=== PATIENT | male | born 1945 | race Caucasian/White ===

== ENCOUNTER 2021-04-27 21:19 | Emergency (ER) | payer OTHER ==
[~2021-04-27] VITALS: Ht 177.8 cm; Wt 95.0 kg
[~2021-04-27 21:19] MED LIST: AMITRIPTYLIN100 MG PO; AMOXICILLIN500 M1 OR; MOTRIN800 MG OR; PREVACID30 M2 PO; PREVACID30 M3 PO; TERAZOSIN10 MG PO; TRAZODONE100 MG PO; VICODIN1 TAB PO
[2021-04-27 22:02] VITALS: BP 113/55
[2021-04-27 22:30] VITALS: BP 105/52
[2021-04-27 22:43] LABS: HEMATOCRIT 41.6 % (39.0-50.0); IMMATURE GRANULOCYTES 0.1 % (0.0-5.0); MEAN CELL VOLUME 95.2 fL CALC (80.0-100.0); MEAN CORPUSCULAR HGB 31.1 pG CALC (26.0-32.0); MEAN CORPUSCULAR HGB CONC 32.7 g/dL CAL (32.0-36.0); NEUT# 7.85 thou/uL (1.82-7.42); RED BLOOD COUNT 4.37 mill/uL (4.70-6.10)
[2021-04-27 22:44] LABS: HEMOGLOBIN 13.6 g/dl (14.0-18.0)
[2021-04-27 23:00] VITALS: BP 118/55
[2021-04-27 23:04] LABS: ALKALINE PHOSPHATASE 79 u/l (38-126); ANION GAP 12 (6-22 (CALC)); BUN 8 mg/dL (8-23); BUN/CREATININE RATIO 13 (12-20 (CALC)); CARBON DIOXIDE 26 mmol/l (22-30); CHLORIDE 102 mmol/l (95-108); CREATININE 0.6 mg/dL (0.7-1.3); GFR > 60 ML/MIN (>=60 (CALC)); GFR FOR AFR.AMER. > 60 ML/MIN (>=60 (CALC)); POTASSIUM 4.2 mmol/l (3.5-5.1); SGOT/AST 27 u/l (19-48); SODIUM 136 mmol/l (137-146); TOTAL PROTEIN 6.7 g/dL (6.3-8.2)
[2021-04-27 23:06] LABS: ALBUMIN 3.5 g/dL (3.2-5.0); BILIRUBIN, TOTAL 0.3 mg/dL (0.0-1.4)
[2021-04-27 23:30] VITALS: BP 119/58
[2021-04-27] MEDS ORDERED: CLEOCIN300 MG PO (23:30)
[2021-04-28 00:06] VITALS: BP 119/58
== END 2021-04-28 00:05 | disposition home or self-care (01) | DRG 603 ==
LOC: ED 21:19
DX: L03.116 Cellulitis of left lower limb (principal); L97.429 Non-pressure chronic ulcer of left heel and midfoot with unspecified severity; R73.03 Prediabetes; I10 Essential (primary) hypertension; F17.210 Nicotine dependence, cigarettes, uncomplicated

== ENCOUNTER 2021-05-13 11:27 | Inpatient (IN) | payer OTHER, MEDICARE ==
[~2021-05-13] VITALS: Ht 177.8 cm; Wt 98.6 kg
[2021-05-13] VITALS (15 sets, daily range): BP systolic 108–166; BP diastolic 51–99
[~2021-05-13 11:27] MED LIST changes: +CLEOCIN300 MG PO; +OMEPRAZOLE20 MG PO; -PREVACID30 M3 PO; -TRAZODONE100 MG PO; +TRAZODONE50 MG PO
[2021-05-13] MEDS ORDERED: LYRICA100 MG PO (13:11)
[2021-05-13] MEDS ORDERED: OXYCODONE10 M1 PO (13:13)
[2021-05-13] MEDS ORDERED: METOPROL TAR25 MG PO (13:15)
[2021-05-13 13:45] LABS: HEMATOCRIT 44.3 % (39.0-50.0); HEMOGLOBIN 14.2 g/dl (14.0-18.0); IMMATURE GRANULOCYTES 0.4 % (0.0-5.0); MEAN CELL VOLUME 95.1 fL CALC (80.0-100.0); MEAN CORPUSCULAR HGB 30.5 pG CALC (26.0-32.0); MEAN CORPUSCULAR HGB CONC 32.1 g/dL CAL (32.0-36.0); NEUT# 7.83 thou/uL (1.82-7.42); RED BLOOD COUNT 4.66 mill/uL (4.70-6.10); RED CELL DISTRI WIDTH 13.9 % (11.5-15.5)
[2021-05-13 14:02] LABS: ALBUMIN 3.6 g/dL (3.2-5.0); ALKALINE PHOSPHATASE 77 u/l (38-126); ANION GAP 9 (6-22 (CALC)); BILIRUBIN, TOTAL 0.2 mg/dL (0.0-1.4); BUN 11 mg/dL (8-23); BUN/CREATININE RATIO 19 (12-20 (CALC)); CARBON DIOXIDE 31 mmol/l (22-30); CHLORIDE 103 mmol/l (95-108); CREATININE 0.6 mg/dL (0.7-1.3); GFR > 60 ML/MIN (>=60 (CALC)); GFR FOR AFR.AMER. > 60 ML/MIN (>=60 (CALC)); POTASSIUM 4.2 mmol/l (3.5-5.1); SGOT/AST 25 u/l (19-48); SODIUM 138 mmol/l (137-146); TOTAL PROTEIN 6.8 g/dL (6.3-8.2)
[2021-05-13] MEDS ORDERED: LYRICA150 M1 PO (17:12)
[2021-05-13] MEDS ORDERED: ALBUTEROL108 MCG/AC PO (17:12)
[2021-05-13] MEDS ORDERED: CYMBALTA60 MG PO (17:12)
[2021-05-13] MEDS ORDERED: ADVAIR DISK1 IN (17:13)
[2021-05-13] MEDS ORDERED: HYDROXYZINE HYD25 MG PO (17:14)
[2021-05-13] MEDS ORDERED: FINASTERIDE5 MG PO (17:14)
[2021-05-14 04:00] VITALS: BP 131/75
[2021-05-14 05:33] LABS: HEMATOCRIT 41.8 % (39.0-50.0); HEMOGLOBIN 13.5 g/dl (14.0-18.0); MEAN CELL VOLUME 94.4 fL CALC (80.0-100.0); MEAN CORPUSCULAR HGB 30.5 pG CALC (26.0-32.0); MEAN CORPUSCULAR HGB CONC 32.3 g/dL CAL (32.0-36.0); RED BLOOD COUNT 4.43 mill/uL (4.70-6.10); RED CELL DISTRI WIDTH 13.8 % (11.5-15.5)
[2021-05-14 06:14] LABS: ANION GAP 10 (6-22 (CALC)); BUN 11 mg/dL (8-23); BUN/CREATININE RATIO 18 (12-20 (CALC)); CARBON DIOXIDE 26 mmol/l (22-30); CHLORIDE 108 mmol/l (95-108); CREATININE 0.6 mg/dL (0.7-1.3); GFR > 60 ML/MIN (>=60 (CALC)); GFR FOR AFR.AMER. > 60 ML/MIN (>=60 (CALC)); MAGNESIUM 2.2 mg/dL (1.6-2.3); POTASSIUM 4.3 mmol/l (3.5-5.1); SODIUM 140 mmol/l (137-146)
[2021-05-14 07:36] VITALS: BP 127/49
[2021-05-14 14:00] VITALS: BP 106/52
[2021-05-14 19:26] VITALS: BP 125/47
[2021-05-15 04:06] VITALS: BP 132/53
[2021-05-15 04:10] VITALS: BP 143/78
[2021-05-15 05:10] LABS: HEMATOCRIT 43.1 % (39.0-50.0); HEMOGLOBIN 13.8 g/dl (14.0-18.0); MEAN CELL VOLUME 95.4 fL CALC (80.0-100.0); MEAN CORPUSCULAR HGB 30.5 pG CALC (26.0-32.0); RED BLOOD COUNT 4.52 mill/uL (4.70-6.10); RED CELL DISTRI WIDTH 14.1 % (11.5-15.5)
[2021-05-15 05:39] LABS: ANION GAP 12 (6-22 (CALC)); BUN 13 mg/dL (8-23); BUN/CREATININE RATIO 22 (12-20 (CALC)); CARBON DIOXIDE 24 mmol/l (22-30); CHLORIDE 108 mmol/l (95-108); CREATININE 0.6 mg/dL (0.7-1.3); GFR > 60 ML/MIN (>=60 (CALC)); GFR FOR AFR.AMER. > 60 ML/MIN (>=60 (CALC)); SODIUM 139 mmol/l (137-146)
[2021-05-15 19:35] VITALS: BP 142/89
[2021-05-16 03:45] VITALS: BP 141/70
[2021-05-16 05:15] LABS: MEAN CELL VOLUME 93.2 fL CALC (80.0-100.0); MEAN CORPUSCULAR HGB 30.2 pG CALC (26.0-32.0); MEAN CORPUSCULAR HGB CONC 32.5 g/dL CAL (32.0-36.0); RED BLOOD COUNT 5.29 mill/uL (4.70-6.10); RED CELL DISTRI WIDTH 13.8 % (11.5-15.5)
[2021-05-16 05:30] LABS: HEMATOCRIT 49.3 % (39.0-50.0)
[2021-05-16 05:33] LABS: ANION GAP 16 (6-22 (CALC)); BUN 10 mg/dL (8-23); BUN/CREATININE RATIO 19 (12-20 (CALC)); CARBON DIOXIDE 22 mmol/l (22-30); CHLORIDE 106 mmol/l (95-108); CREATININE 0.5 mg/dL (0.7-1.3); GFR > 60 ML/MIN (>=60 (CALC)); GFR FOR AFR.AMER. > 60 ML/MIN (>=60 (CALC)); POTASSIUM 4.1 mmol/l (3.5-5.1); SODIUM 139 mmol/l (137-146)
[2021-05-16 07:47] VITALS: BP 158/88
[2021-05-16 15:15] VITALS: BP 128/58
[2021-05-16 20:38] VITALS: BP 169/81
[2021-05-17] VITALS (12 sets, daily range): BP systolic 101–153; BP diastolic 44–78
[2021-05-17 05:20] LABS: HEMOGLOBIN 16.2 g/dl (14.0-18.0); IMMATURE GRANULOCYTES 0.5 % (0.0-5.0); MEAN CELL VOLUME 92.6 fL CALC (80.0-100.0); MEAN CORPUSCULAR HGB 30.6 pG CALC (26.0-32.0); MEAN CORPUSCULAR HGB CONC 33.1 g/dL CAL (32.0-36.0); NEUT# 10.17 thou/uL (1.82-7.42); RED BLOOD COUNT 5.29 mill/uL (4.70-6.10); RED CELL DISTRI WIDTH 13.8 % (11.5-15.5)
[2021-05-17 06:02] LABS: ALKALINE PHOSPHATASE 95 u/l (38-126); ANION GAP 17 (6-22 (CALC)); BILIRUBIN, TOTAL 0.7 mg/dL (0.0-1.4); BUN 16 mg/dL (8-23); BUN/CREATININE RATIO 29 (12-20 (CALC)); C-REACTIVE PROTEIN 1.1 mg/dL (0-0.9); CARBON DIOXIDE 22 mmol/l (22-30); CHLORIDE 105 mmol/l (95-108); CREATININE 0.5 mg/dL (0.7-1.3); GFR > 60 ML/MIN (>=60 (CALC)); GFR FOR AFR.AMER. > 60 ML/MIN (>=60 (CALC)); POTASSIUM 3.9 mmol/l (3.5-5.1); SGOT/AST 33 u/l (19-48); SODIUM 140 mmol/l (137-146); TOTAL PROTEIN 7.6 g/dL (6.3-8.2)
[2021-05-18 04:00] VITALS: BP 109/61
[2021-05-18 06:49] LABS: HEMATOCRIT 46.2 % (39.0-50.0); HEMOGLOBIN 15.4 g/dl (14.0-18.0); IMMATURE GRANULOCYTES 0.2 % (0.0-5.0); MEAN CORPUSCULAR HGB CONC 33.3 g/dL CAL (32.0-36.0); NEUT# 9.59 thou/uL (1.82-7.42); RED BLOOD COUNT 4.97 mill/uL (4.70-6.10); RED CELL DISTRI WIDTH 13.8 % (11.5-15.5)
[2021-05-18 07:02] LABS: ANION GAP 16 (6-22 (CALC)); BUN 15 mg/dL (8-23); BUN/CREATININE RATIO 29 (12-20 (CALC)); CARBON DIOXIDE 23 mmol/l (22-30); CHLORIDE 101 mmol/l (95-108); CREATININE 0.5 mg/dL (0.7-1.3); GFR > 60 ML/MIN (>=60 (CALC)); GFR FOR AFR.AMER. > 60 ML/MIN (>=60 (CALC)); MAGNESIUM 1.7 mg/dL (1.6-2.3); POTASSIUM 3.9 mmol/l (3.5-5.1); SODIUM 137 mmol/l (137-146)
[2021-05-18 08:04] VITALS: BP 123/63
[2021-05-18] MEDS ORDERED: BACTRIM DS1 TAB PO (11:28)
[2021-05-18] MEDS ORDERED: AMOX/K CLAV875 M1 PO (11:28)
[2021-05-18] MEDS ORDERED: WALKER WHEELS/FIXED (11:39)
== END 2021-05-18 12:04 | disposition home health service (06) | DRG 988 ==
LOC: ED 11:27 → ED-I 13:00 → ED 13:00 → ED-I 14:20 → ED 16:29 → MS2 16:30
PROVIDERS: Family Medicine; Nurse Practitioner; ADMIT Hospitalist; ATTEND Internal Medicine
PROC: 0QBP0Z2 Excision of Left Metatarsal, Sesamoid Bone(s) 1st Toe, Open Approach (ICD-10-PCS; principal; 2021-05-17)
PROC: 0J9R0ZZ Drainage of Left Foot Subcutaneous Tissue and Fascia, Open Approach (ICD-10-PCS; 2021-05-17)
DX: L02.612 Cutaneous abscess of left foot (principal); L03.116 Cellulitis of left lower limb; I10 Essential (primary) hypertension; G62.1 Alcoholic polyneuropathy; K21.9 Gastro-esophageal reflux disease without esophagitis; F10.11 Alcohol abuse, in remission; F17.210 Nicotine dependence, cigarettes, uncomplicated; S91.302A Unspecified open wound, left foot, initial encounter; X58.XXXA Exposure to other specified factors, initial encounter; Z20.822 Contact with and (suspected) exposure to COVID-19
CPT/HCPCS: G0378; J1650; J2060; S0164

== ENCOUNTER 2021-05-23 19:59 | Emergency (ER) | payer OTHER ==
[~2021-05-23] VITALS: Ht 177.8 cm; Wt 95.0 kg
[2021-05-23] VITALS (8 sets, daily range): BP systolic 112–140; BP diastolic 49–68
[~2021-05-23 19:59] MED LIST changes: +ADVAIR DISK1 IN; +ALBUTEROL108 MCG/AC PO; +AMOX/K CLAV875 M1 PO; +BACTRIM DS1 TAB PO; +CYMBALTA60 MG PO; +FINASTERIDE5 MG PO; +HYDROXYZINE HYD25 MG PO; +LYRICA100 MG PO; +LYRICA150 M1 PO; +METOPROL TAR25 MG PO; +OXYCODONE10 M1 PO; +WALKER WHEELS/FIXED
[2021-05-23 20:31] LABS: HEMATOCRIT 43.6 % (39.0-50.0); HEMOGLOBIN 13.9 g/dl (14.0-18.0); IMMATURE GRANULOCYTES 0.5 % (0.0-5.0); MEAN CELL VOLUME 96.5 fL CALC (80.0-100.0); MEAN CORPUSCULAR HGB 30.8 pG CALC (26.0-32.0); MEAN CORPUSCULAR HGB CONC 31.9 g/dL CAL (32.0-36.0); NEUT# 5.83 thou/uL (1.82-7.42); RED BLOOD COUNT 4.52 mill/uL (4.70-6.10); RED CELL DISTRI WIDTH 14.2 % (11.5-15.5)
[2021-05-23 20:45] LABS: ALBUMIN 4.1 g/dL (3.2-5.0); ALKALINE PHOSPHATASE 88 u/l (38-126); ANION GAP 13 (6-22 (CALC)); BUN 12 mg/dL (8-23); BUN/CREATININE RATIO 15 (12-20 (CALC)); CARBON DIOXIDE 24 mmol/l (22-30); CHLORIDE 103 mmol/l (95-108); CREATININE 0.8 mg/dL (0.7-1.3); GFR > 60 ML/MIN (>=60 (CALC)); GFR FOR AFR.AMER. > 60 ML/MIN (>=60 (CALC)); POTASSIUM 4.1 mmol/l (3.5-5.1); SGOT/AST 38 u/l (19-48); SODIUM 136 mmol/l (137-146); TOTAL PROTEIN 7.8 g/dL (6.3-8.2)
[2021-05-23 20:50] LABS: BILIRUBIN, TOTAL 0.4 mg/dL (0.0-1.4)
== END 2021-05-23 23:26 | disposition home or self-care (01) | DRG 603 ==
LOC: ED 19:59
PROVIDERS: Emergency Medicine
DX: L03.116 Cellulitis of left lower limb (principal); I10 Essential (primary) hypertension; F17.200 Nicotine dependence, unspecified, uncomplicated
CPT/HCPCS: Q9967